=== PATIENT | male | born 1940 | race Caucasian/White ===

== ENCOUNTER → 2017-12-16 | Outpatient (CLI) | payer MEDICARE, BC ==
[~2017-12-16] MED LIST: AMLO10 PO; AMLO5 PO; ASPI325 PO; ASPI81CH PO; ASPI81EC PO; ATOR10 PO; ATOR20 PO; BISA10S PR; CYCL10 PO; DIGOX250 MCG PO; DRON400T PO; ELIQUIS5 MG PO; FENO145 PO; FENO160 PO; FENOFIBRATE48 MG PO; FINA5 PO; Flomax0.4 MG PO; HYDACE10B PO; HYDCHL12.5 PO; Hair, Skin & N1 EACH PO; K-Dur20 MEQ PO; LANS30EC PO; LOSA50 PO; Lasix20 MG PO; METO25 PO; METO25ER PO; METO50 PO; METOPROLOL TART75 MG PO; MULT50L PO; MULVITMIND PO; NAPR250 PO; NAPR500 PO; NAPROSYN; Naproxen250 MG PO; OMEP20ER PO; ONDA4ODT MM; TAMS.4ER PO; TRAM50 PO; Tambocor100 MG PO; [UNRECOGNIZED DRUG - OTHER] PO
== END | disposition home or self-care (01) ==
LOC: LAB SHORT 07:41 → PLD 07:41
DX: D22.4 Melanocytic nevi of scalp and neck (principal); L57.8 Other skin changes due to chronic exposure to nonionizing radiation
CPT/HCPCS: 88305

== ENCOUNTER 2018-03-25 | Day surgery (SDC) | END 2018-03-25 14:20 | disposition home or self-care (01) ==

== ENCOUNTER 2018-06-13 09:35 | Emergency (ER) | payer MEDICARE, BC ==
[~2018-06-13] VITALS: Ht 172.7 cm; Wt 111.1 kg
[~2018-06-13 09:35] MED LIST changes: -HYDCHL12.5 PO; -METOPROLOL TART75 MG PO
[2018-06-13 10:29] LABS: BASOPHILS ABSOLUTE AUTO 0.06 K/mm3 (0.00-0.23); BASOPHILS PERCENT AUTO 1 % (0-2); EOSINOPHILS PERCENT AUTO 1 % (0-6); Hematocrit 50.8 % (37.0-53.0); Hemoglobin 16.8 g/dL (13.5-17.5); IMMATURE GRAN ABSOLUTE AUTO 0.01 K/mm3 (0.00-0.10); IMMATURE GRAN PERCENT AUTO 0 % (0-1); LYMPHOCYTES ABSOLUTE AUTO 1.93 K/mm3 (0.84-5.20); LYMPHOCYTES PERCENT AUTO 27 % (21-46); MONOCYTES ABSOLUTE AUTO 0.72 K/mm3 (0.16-1.47); MONOCYTES PERCENT AUTO 10 % (4-13); Mean Corpuscular HGB 29.9 pg (26.0-34.0); Mean Corpuscular HGB Conc 33.1 g/dL (31.5-36.5); Mean Corpuscular Volume 90 fL (80-100); Mean Platelet Volume 10.6 fL (9.1-12.4); NEUTROPHILS ABSOLUTE AUTO 4.34 K/mm3 (1.96-9.15); NEUTROPHILS PERCENT AUTO 61 % (41-73); Platelet Count 239 K/mm3 (150-400); RDW Coefficient Variation 13.4 % (11.7-14.2); RDW Standard Deviation 44.9 fL (35.1-46.3); Red Blood Cell Count 5.62 M/mm3 (4.30-5.90); White Blood Cell Count 7.16 K/mm3 (4.00-11.30)
[2018-06-13 10:53] LABS: Free Thyroxine 0.93 ng/dL (0.70-1.60); Troponin I 0.016 ng/mL (0.000-0.040)
[2018-06-13 11:11] LABS: Alanine Aminotransfer (ALT/SGP 71 U/L (12-78); Albumin, Blood 3.6 g/dL (3.4-5.0); Alk Phos 90 U/L (50-136); Anion Gap 5 mmol/L (6-16); Aspartate Aminotrans (AST/SGOT 46 U/L (12-37); Bilirubin, Total 0.7 mg/dL (0.1-1.0); Blood Urea Nitrogen 21 mg/dL (8-24); Bun/Creatinine Ratio 21.5 (12.0-20.0); CO2, Blood 26 mmol/L (21-32); Calcium, Blood 8.3 mg/dL (8.5-10.1); Chloride, Blood 111 mmol/L (98-108); Creatinine, Blood 0.98 mg/dL (0.60-1.20); Globulin, Blood 3.6 g/dL (2.2-4.0); Glomerular Filtration Rate >60 (60-); Glucose, Blood 122 mg/dL (70-99); Sodium, Blood 142 mmol/L (136-145); Total Protein, Blood 7.2 g/dL (6.4-8.2)
[2018-06-14] MEDS ORDERED: METOPROLOL TART75 MG PO (16:03)
== END 2018-06-13 14:19 | disposition home or self-care (01) ==
LOC: ER 09:35
PROVIDERS: Emergency Medicine
DX: I48.92 Unspecified atrial flutter (principal); I48.91 Unspecified atrial fibrillation; Z91.030 Bee allergy status; Z79.899 Other long term (current) drug therapy; Z86.73 Personal history of transient ischemic attack (TIA), and cerebral infarction without residual deficits; Z87.891 Personal history of nicotine dependence
CPT/HCPCS: 36415; 80053; 84439; 84443; 84484; 85025; 92960; 93005; 93010; 96374; 96375; 99285-25; J2405; J7030

== ENCOUNTER 2018-06-14 13:08 | Emergency (ER) | payer MEDICARE, BC ==
[~2018-06-14] VITALS: Ht 172.7 cm; Wt 111.1 kg
[2018-06-14 15:21] LABS: BASOPHILS ABSOLUTE AUTO 0.03 K/mm3 (0.00-0.23); BASOPHILS PERCENT AUTO 0 % (0-2); EOSINOPHILS ABSOLUTE AUTO 0.11 K/mm3 (0.00-0.68); EOSINOPHILS PERCENT AUTO 1 % (0-6); Hematocrit 48.7 % (37.0-53.0); Hemoglobin 16.3 g/dL (13.5-17.5); IMMATURE GRAN ABSOLUTE AUTO 0.02 K/mm3 (0.00-0.10); IMMATURE GRAN PERCENT AUTO 0 % (0-1); LYMPHOCYTES ABSOLUTE AUTO 1.98 K/mm3 (0.84-5.20); LYMPHOCYTES PERCENT AUTO 24 % (21-46); MONOCYTES ABSOLUTE AUTO 0.69 K/mm3 (0.16-1.47); MONOCYTES PERCENT AUTO 8 % (4-13); Mean Corpuscular HGB 30.5 pg (26.0-34.0); Mean Corpuscular HGB Conc 33.5 g/dL (31.5-36.5); Mean Corpuscular Volume 91 fL (80-100); Mean Platelet Volume 10.8 fL (9.1-12.4); NEUTROPHILS PERCENT AUTO 66 % (41-73); Platelet Count 224 K/mm3 (150-400); RDW Coefficient Variation 13.7 % (11.7-14.2); Red Blood Cell Count 5.35 M/mm3 (4.30-5.90); White Blood Cell Count 8.33 K/mm3 (4.00-11.30)
[2018-06-14 15:38] LABS: Alanine Aminotransfer (ALT/SGP 69 U/L (12-78); Albumin, Blood 3.5 g/dL (3.4-5.0); Albumin/Globulin Ratio 1.1 (0.8-1.8); Alk Phos 82 U/L (50-136); Anion Gap 9 mmol/L (6-16); Aspartate Aminotrans (AST/SGOT 41 U/L (12-37); Bilirubin, Total 0.7 mg/dL (0.1-1.0); Blood Urea Nitrogen 30 mg/dL (8-24); Bun/Creatinine Ratio 23.8 (12.0-20.0); CO2, Blood 25 mmol/L (21-32); Calcium, Blood 8.3 mg/dL (8.5-10.1); Chloride, Blood 109 mmol/L (98-108); Creatinine, Blood 1.26 mg/dL (0.60-1.20); Globulin, Blood 3.1 g/dL (2.2-4.0); Glomerular Filtration Rate 59 (60-); Glucose, Blood 121 mg/dL (70-99); Magnesium, Blood 2.1 mg/dL (1.6-2.4); Potassium, Blood 4.2 mmol/L (3.5-5.5); Sodium, Blood 143 mmol/L (136-145); Total Protein, Blood 6.6 g/dL (6.4-8.2); Troponin I <0.015 ng/mL (0.000-0.040)
[2018-06-14] MEDS ORDERED: METOPROLOL TART75 MG PO (16:03)
== END 2018-06-14 17:11 | disposition home or self-care (01) ==
LOC: ER 13:08
PROVIDERS: Emergency Medicine
DX: I48.91 Unspecified atrial fibrillation (principal); Z87.891 Personal history of nicotine dependence; Z91.030 Bee allergy status; Z79.899 Other long term (current) drug therapy
CPT/HCPCS: 36415; 80053; 83735; 83880; 84443; 84484; 85025; 93005; 93010; 96374; 96375; 99285-25; J0153; J7030

== ENCOUNTER 2019-09-04 07:39 | Day surgery (SDC) | payer MEDICARE, BC ==
[~2019-09-04 07:39] MED LIST changes: +HYDCHL12.5 PO; +METOPROLOL TART75 MG PO
[2019-09-04] MEDS ORDERED: METO100ER (08:28)
== END 2019-09-04 23:01 | disposition home or self-care (01) ==
LOC: MHTC 07:39
DX: I48.3 Typical atrial flutter (principal); I49.5 Sick sinus syndrome; E78.5 Hyperlipidemia, unspecified; I10 Essential (primary) hypertension; G47.33 Obstructive sleep apnea (adult) (pediatric); Z91.018 Allergy to other foods; Z79.01 Long term (current) use of anticoagulants; Z79.899 Other long term (current) drug therapy; Z99.89 Dependence on other enabling machines and devices
CPT/HCPCS: 92960; 93005; 93010; 99152; 99153; J2250; J3010; J7040

== ENCOUNTER 2020-02-17 14:54 | Emergency (ER) | payer OTHER, MEDICARE, BC ==
[~2020-02-17] VITALS: Ht 177.8 cm; Wt 93.4 kg
[~2020-02-17 14:54] MED LIST changes: +METO100ER
[2020-02-17] MEDS ORDERED: ATOR10 PO (15:39)
[2020-02-17] MEDS ORDERED: ROSU10TA (15:40)
[2020-02-17] MEDS ORDERED: LANS30EC PO (15:41)
[2020-02-17] MEDS ORDERED: Flecainide Acet50 MG PO (15:41)
== END 2020-02-17 18:05 | disposition home or self-care (01) ==
LOC: ER 14:54
DX: S00.81XA Abrasion of other part of head, initial encounter (principal); S80.212A Abrasion, left knee, initial encounter; I48.91 Unspecified atrial fibrillation; I10 Essential (primary) hypertension; E78.5 Hyperlipidemia, unspecified; K21.9 Gastro-esophageal reflux disease without esophagitis; N40.0 Benign prostatic hyperplasia without lower urinary tract symptoms; G47.33 Obstructive sleep apnea (adult) (pediatric); Z91.030 Bee allergy status; Z79.899 Other long term (current) drug therapy; Z79.01 Long term (current) use of anticoagulants; Z86.73 Personal history of transient ischemic attack (TIA), and cerebral infarction without residual deficits; Z87.891 Personal history of nicotine dependence; W18.30XA Fall on same level, unspecified, initial encounter
CPT/HCPCS: 70450; 96374; 99284-25

== ENCOUNTER 2020-02-19 17:52 | Emergency (ER) | payer OTHER, MEDICARE, BC ==
[~2020-02-19] VITALS: Ht 177.8 cm; Wt 117.9 kg
[~2020-02-19 17:52] MED LIST changes: +Flecainide Acet50 MG PO; +ROSU10TA
[2020-02-19 18:33] LABS: BASOPHILS ABSOLUTE AUTO 0.04 K/mm3 (0.00-0.23); BASOPHILS PERCENT AUTO 0 % (0-2); EOSINOPHILS ABSOLUTE AUTO 0.06 K/mm3 (0.00-0.68); EOSINOPHILS PERCENT AUTO 1 % (0-6); Hematocrit 49.7 % (37.0-53.0); Hemoglobin 16.3 g/dL (13.5-17.5); IMMATURE GRAN ABSOLUTE AUTO 0.03 K/mm3 (0.00-0.10); IMMATURE GRAN PERCENT AUTO 0 % (0-1); LYMPHOCYTES ABSOLUTE AUTO 1.92 K/mm3 (0.84-5.20); LYMPHOCYTES PERCENT AUTO 20 % (21-46); MONOCYTES ABSOLUTE AUTO 0.86 K/mm3 (0.16-1.47); MONOCYTES PERCENT AUTO 9 % (4-13); Mean Corpuscular HGB 30.9 pg (26.0-34.0); Mean Corpuscular HGB Conc 32.8 g/dL (31.5-36.5); Mean Corpuscular Volume 94 fL (80-100); Mean Platelet Volume 10.9 fL (9.1-12.4); NEUTROPHILS ABSOLUTE AUTO 6.89 K/mm3 (1.96-9.15); NEUTROPHILS PERCENT AUTO 70 % (41-73); Platelet Count 292 K/mm3 (150-400); RDW Coefficient Variation 13.7 % (11.7-14.2); RDW Standard Deviation 47.9 fL (35.1-46.3); Red Blood Cell Count 5.28 M/mm3 (4.30-5.90)
[2020-02-19 18:59] LABS: Alanine Aminotransfer (ALT/SGP 72 U/L (12-78); Albumin, Blood 3.8 g/dL (3.4-5.0); Albumin/Globulin Ratio 1.1 (0.8-1.8); Alk Phos 81 U/L (50-136); Anion Gap 6 mmol/L (6-16); Aspartate Aminotrans (AST/SGOT 39 U/L (12-37); Blood Urea Nitrogen 22 mg/dL (8-24); Bun/Creatinine Ratio 18.3 (12.0-20.0); CO2, Blood 26 mmol/L (21-32); Calcium, Blood 8.9 mg/dL (8.5-10.1); Chloride, Blood 109 mmol/L (98-108); Globulin, Blood 3.6 g/dL (2.2-4.0); Glomerular Filtration Rate >60 (60-); Glucose, Blood 106 mg/dL (70-99); Potassium, Blood 3.8 mmol/L (3.5-5.5); Sodium, Blood 141 mmol/L (136-145); Total Protein, Blood 7.4 g/dL (6.4-8.2); Troponin I <0.015 ng/mL (0.000-0.040)
== END 2020-02-19 21:03 | disposition home or self-care (01) ==
LOC: ER 17:52
PROVIDERS: Nurse Practitioner
DX: I48.92 Unspecified atrial flutter (principal); I48.91 Unspecified atrial fibrillation; K21.9 Gastro-esophageal reflux disease without esophagitis; G47.33 Obstructive sleep apnea (adult) (pediatric); Z86.73 Personal history of transient ischemic attack (TIA), and cerebral infarction without residual deficits; Z87.891 Personal history of nicotine dependence
CPT/HCPCS: 36415; 71046; 80053; 84484; 85025; 92960; 93005; 93010; 99285-25; J2704; J7030

== ENCOUNTER 2020-07-10 19:45 | Emergency (ER) | payer OTHER, MEDICARE, BC ==
[~2020-07-10] VITALS: Ht 177.8 cm; Wt 123.4 kg
[~2020-07-10 19:45] MED LIST changes: -ELIQUIS5 MG PO; -FINA5 PO; -Flecainide Acet50 MG PO; -Flomax0.4 MG PO; -METO100ER
[2020-07-10 20:22] LABS: BASOPHILS ABSOLUTE AUTO 0.04 K/mm3 (0.00-0.23); BASOPHILS PERCENT AUTO 1 % (0-2); EOSINOPHILS ABSOLUTE AUTO 0.07 K/mm3 (0.00-0.68); EOSINOPHILS PERCENT AUTO 1 % (0-6); Hematocrit 46.8 % (37.0-53.0); Hemoglobin 15.5 g/dL (13.5-17.5); IMMATURE GRAN ABSOLUTE AUTO 0.02 K/mm3 (0.00-0.10); IMMATURE GRAN PERCENT AUTO 0 % (0-1); LYMPHOCYTES ABSOLUTE AUTO 2.05 K/mm3 (0.84-5.20); LYMPHOCYTES PERCENT AUTO 26 % (21-46); MONOCYTES ABSOLUTE AUTO 0.81 K/mm3 (0.16-1.47); MONOCYTES PERCENT AUTO 10 % (4-13); Mean Corpuscular HGB 30.5 pg (26.0-34.0); Mean Corpuscular HGB Conc 33.1 g/dL (31.5-36.5); Mean Corpuscular Volume 92 fL (80-100); Mean Platelet Volume 11.9 fL (9.1-12.4); NEUTROPHILS ABSOLUTE AUTO 4.96 K/mm3 (1.96-9.15); NEUTROPHILS PERCENT AUTO 62 % (41-73); Platelet Count 212 K/mm3 (150-400); RDW Coefficient Variation 13.3 % (11.7-14.2); RDW Standard Deviation 45.6 fL (35.1-46.3); Red Blood Cell Count 5.09 M/mm3 (4.30-5.90); White Blood Cell Count 7.95 K/mm3 (4.00-11.30)
[2020-07-10 20:38] LABS: International Normalized Ratio 0.99; Prothrombin Time Results 10.6 Sec (9.7-11.5)
[2020-07-10] MEDS ORDERED: AMLO5 PO (21:18)
[2020-07-10] MEDS ORDERED: Flomax0.4 MG PO (21:18)
[2020-07-10] MEDS ORDERED: FINA5 PO (21:18)
[2020-07-10] MEDS ORDERED: LOSARTAN POTAS100 M1 PO (21:18)
[2020-07-10] MEDS ORDERED: ELIQUIS5 MG PO (21:19)
[2020-07-10] MEDS ORDERED: Flecainide Acet50 MG PO (21:19)
[2020-07-10] MEDS ORDERED: METO100ER PO (21:19)
[2020-07-10] MEDS ORDERED: LANS30EC PO (21:20)
[2020-07-10 21:29] LABS: Alanine Aminotransfer (ALT/SGP 96 U/L (12-78); Albumin, Blood 3.5 g/dL (3.4-5.0); Alk Phos 91 U/L (50-136); Anion Gap 7 mmol/L (6-16); Aspartate Aminotrans (AST/SGOT 63 U/L (12-37); Bilirubin, Total 0.5 mg/dL (0.1-1.0); Blood Urea Nitrogen 18 mg/dL (8-24); Bun/Creatinine Ratio 19.6 (12.0-20.0); CO2, Blood 27 mmol/L (21-32); Calcium, Blood 8.6 mg/dL (8.5-10.1); Chloride, Blood 107 mmol/L (98-108); Creatinine, Blood 0.92 mg/dL (0.60-1.20); Ethanol (Alcohol), Blood, Med <3 mg/dL; Globulin, Blood 3.4 g/dL (2.2-4.0); Glomerular Filtration Rate >60 (60-); Glucose, Blood 115 mg/dL (70-99); Potassium, Blood 3.7 mmol/L (3.5-5.5); Sodium, Blood 141 mmol/L (136-145); Total Protein, Blood 6.9 g/dL (6.4-8.2)
[2020-07-10] MEDS ORDERED: Keflex500 MG PO (22:10)
== END 2020-07-10 23:16 | disposition home or self-care (01) ==
LOC: ER 19:45
PROVIDERS: Emergency Medicine
DX: S01.81XA Laceration without foreign body of other part of head, initial encounter (principal); I10 Essential (primary) hypertension; K21.9 Gastro-esophageal reflux disease without esophagitis; I48.91 Unspecified atrial fibrillation; E78.5 Hyperlipidemia, unspecified; N40.0 Benign prostatic hyperplasia without lower urinary tract symptoms; Z91.030 Bee allergy status; Z79.899 Other long term (current) drug therapy; Z79.01 Long term (current) use of anticoagulants; Z86.73 Personal history of transient ischemic attack (TIA), and cerebral infarction without residual deficits; Z87.891 Personal history of nicotine dependence; W01.0XXA Fall on same level from slipping, tripping and stumbling without subsequent striking against object, initial encounter; Y93.01 Activity, walking, marching and hiking
CPT/HCPCS: 12051; 70450; 71045; 72125; 73100; 80053; 85025; 85610; 85730; 86850; 86900; 86901; 99284-25; A9270-GY; G0480

== ENCOUNTER 2020-08-17 17:12 | Emergency (ER) | payer OTHER, MEDICARE, BC ==
[~2020-08-17] VITALS: Ht 177.8 cm; Wt 123.0 kg
[~2020-08-17 17:12] MED LIST changes: +ELIQUIS5 MG PO; +FINA5 PO; +Flecainide Acet50 MG PO; +Flomax0.4 MG PO; +Keflex500 MG PO; +LOSARTAN POTAS100 M1 PO; +METO100ER PO
== END 2020-08-17 21:35 | disposition home or self-care (01) ==
LOC: ER 17:12
DX: S06.0X0A Concussion without loss of consciousness, initial encounter (principal); I48.91 Unspecified atrial fibrillation; K21.9 Gastro-esophageal reflux disease without esophagitis; E78.5 Hyperlipidemia, unspecified; H53.8 Other visual disturbances; Z86.73 Personal history of transient ischemic attack (TIA), and cerebral infarction without residual deficits; Z87.891 Personal history of nicotine dependence; W19.XXXA Unspecified fall, initial encounter
CPT/HCPCS: 70450; 99284-25

== ENCOUNTER 2020-10-06 10:57 | Day surgery (SDC) | payer OTHER, MEDICARE, BC ==
[~2020-10-06] VITALS: Ht 177.8 cm; Wt 120.4 kg
[~2020-10-06 10:57] MED LIST changes: +Calcium Ascorb500 MG PO; +FURO80 PO; +METO50ER PO; +ROSU10TA PO; +VITAMIN D32000 UNI1 PO
== END 2020-10-06 14:12 | disposition home or self-care (01) ==
LOC: ORSCSDS 10:57
DX: Z12.11 Encounter for screening for malignant neoplasm of colon (principal); Z86.010 Personal history of colon polyps; D12.2 Benign neoplasm of ascending colon; D12.0 Benign neoplasm of cecum; K63.5 Polyp of colon; K64.8 Other hemorrhoids; I10 Essential (primary) hypertension; E78.5 Hyperlipidemia, unspecified; Z79.899 Other long term (current) drug therapy; I48.0 Paroxysmal atrial fibrillation; Z79.01 Long term (current) use of anticoagulants; F17.210 Nicotine dependence, cigarettes, uncomplicated; E78.00 Pure hypercholesterolemia, unspecified; G47.33 Obstructive sleep apnea (adult) (pediatric); Z86.73 Personal history of transient ischemic attack (TIA), and cerebral infarction without residual deficits
CPT/HCPCS: 88305; J2704

== ENCOUNTER 2020-11-15 16:40 | Inpatient (IN) | payer OTHER, MEDICARE, BC ==
[~2020-11-15] VITALS: Ht 177.8 cm; Wt 126.3 kg
[2020-11-15 18:05] LABS: BASOPHILS ABSOLUTE AUTO 0.07 K/mm3 (0.00-0.23); BASOPHILS PERCENT AUTO 1 % (0-2); EOSINOPHILS ABSOLUTE AUTO 0.07 K/mm3 (0.00-0.68); EOSINOPHILS PERCENT AUTO 1 % (0-6); Hematocrit 51.8 % (37.0-53.0); Hemoglobin 16.7 g/dL (13.5-17.5); IMMATURE GRAN ABSOLUTE AUTO 0.03 K/mm3 (0.00-0.10); IMMATURE GRAN PERCENT AUTO 0 % (0-1); LYMPHOCYTES ABSOLUTE AUTO 0.95 K/mm3 (0.84-5.20); LYMPHOCYTES PERCENT AUTO 10 % (21-46); MONOCYTES ABSOLUTE AUTO 1.09 K/mm3 (0.16-1.47); MONOCYTES PERCENT AUTO 11 % (4-13); Mean Corpuscular HGB Conc 32.2 g/dL (31.5-36.5); Mean Corpuscular Volume 93 fL (80-100); NEUTROPHILS ABSOLUTE AUTO 7.34 K/mm3 (1.96-9.15); NEUTROPHILS PERCENT AUTO 77 % (41-73); Platelet Count 233 K/mm3 (150-400); RDW Coefficient Variation 13.8 % (11.7-14.2); RDW Standard Deviation 47.4 fL (35.1-46.3); Red Blood Cell Count 5.57 M/mm3 (4.30-5.90); White Blood Cell Count 9.55 K/mm3 (4.00-11.30)
[2020-11-15 18:25] LABS: Alanine Aminotransfer (ALT/SGP 156 U/L (12-78); Albumin, Blood 3.7 g/dL (3.4-5.0); Albumin/Globulin Ratio 0.8 (0.8-1.8); Alk Phos 97 U/L (50-136); Anion Gap 6 mmol/L (6-16); Aspartate Aminotrans (AST/SGOT 134 U/L (12-37); Bilirubin, Total 0.8 mg/dL (0.1-1.0); Blood Urea Nitrogen 23 mg/dL (8-24); Bun/Creatinine Ratio 21.3 (12.0-20.0); CO2, Blood 28 mmol/L (21-32); Calcium, Blood 9.1 mg/dL (8.5-10.1); Chloride, Blood 105 mmol/L (98-108); Creatinine, Blood 1.08 mg/dL (0.60-1.20); Globulin, Blood 4.5 g/dL (2.2-4.0); Glomerular Filtration Rate >60 (60-); Glucose, Blood 98 mg/dL (70-99); Sodium, Blood 139 mmol/L (136-145); Total Protein, Blood 8.2 g/dL (6.4-8.2); Troponin I <0.015 ng/mL (0.000-0.040)
[2020-11-15] MEDS ORDERED: METO100ER PO (21:46)
[2020-11-15 22:48] LABS: Source, Urine Clean Catch
[2020-11-15 22:50] LABS: Bilirubin, Urine Neg (Neg); Blood, Urine 1+ (Neg); Glucose Qualitative, Urine Neg (Neg); Ketones, Urine Neg (Neg); Leukocyte Esterase, Urine 2+ (Neg); Nitrite, Urine Neg (Neg); Protein, Urine 2+ (Neg); Urobilinogen, Urine NORM (Normal)
[2020-11-15 22:55] LABS: Appearance, Urine Clear (Clear); Color, Urine Yellow (P-Yellow)
[2020-11-15 22:56] LABS: Red Blood Cells, Urine 0-2 /hpf (0-2)
[2020-11-15 22:57] LABS: Bacteria Few /hpf; Calcium Oxalate Crystals Few /hpf; Squamous Epithelial Cells Not Seen /hpf (Few)
--- NOTE | 2020-11-16 02:35 | NUR ---
ADMIT NOTE HANDOFF RECEIVED FROM ER NURSE JADON. PT BROUGHT TO FLOOR VIA GURNEY. PERSONAL POSSESSIONS WITH PT. CALL BUTTON WITHIN REACH. BED IN LOWEST POSITION. BED ALARM ON.
--- NOTE | 2020-11-16 02:41 | NUR ---
ISOLATION DC'D CALLED ER NURSEJADON. VERIFIED ISOLATION WAS DC'D. NO CONTACT OR ISOLATION ORDERS FOR THIS PT
--- NOTE | 2020-11-16 04:00 | NUR ---
SHIFT SUMMARY ADMITTED FROM ER THIS SHIFT. FULL CODE. PT IS A MAX 2 HEAVY ASSIST FOR CHANGES. HE APPEARS CONFUSED. HE ANSWERS SOME QUESTIONS APPROPRIATELY, AND OTHER QUESTIONS INAPPROPRIATELY. HE DOES TURN HIMSELF IN BED, BUT DOES NOT FOLLOW INSTRUCTIONS. HE IS INCONTINENT. TELEMETRY: TACH @ 113 W/PVC'S. HE WAS AFIB IN ER. HX OF HEMORRHAGIC STROKE. CT OF HEAD NEGATIVE. PRN METOPROLOL AND APRESOLINE AVAILABLE IN EMAR WITH PARAMETERS.
[2020-11-16 10:36] LABS: Base Excess Venous 3.5 mmol/L; Bicarbonate Venous 27.5 mmol/L (24.0-30.0); PCO2 Venous 37.2 mmHg (38-42); PO2 Venous 67.2 mmHg (38-42); pH Blood Venous 7.47 (7.34-7.37)
--- NOTE | 2020-11-16 18:38 | NUR ---
PT PLEASANT TODAY. SLOWLY IMPROVED MENTATION NOTED TODAY. IS A/O X3 BUT SLOW TO RESPOND, PERHAPS 5 SECONDS. THROUGHOO DAY HAS IMPROVED. ANDERSON IN TODAY. STATES DOES USE CPAP NITE. WE HAD HER BRING IN HIS HOME MACHINE. BOB AT RT NOTIFIED TO COME ADJUST. NO C/O PAIN. DOES FEED SELF, BUT DOES SPILL SOME. SOME TREMORS NOTED. PT STATES IS NORMAL. DENIES ETOH USE. BED IN LOW POSITION, CALL LITE IN REACH, BED ALARN ON FOR SAFETY
--- NOTE | 2020-11-17 03:28 | NUR ---
NAUSEA/VOMITING EPISODE PT HAD SUDDEN EPISODE OF NAUSEA AND PROJECTILE VOMITING DURING THE NIGHT. WHEN THIS RN WENT IN TO CHECK ON THE PT, HE WAS COVERED IN EMESIS. PER PT, IT WAS "SUDDEN" AND "IT WOKE ME UP". PT WAS GIVEN A SHOWER AND LINEN CHANGE. PRN ZOFRAN ORDERED AND ADMINISTERED PER DR GARBER. PT STATES HE HAS HAD SIMILAR EPISODES BEFORE BUT "IT WAS YEARS AGO" AND HE COULDN'T RECALL WHAT CAUSED THEM IN THE PAST. DENIED ABD PAIN. WILL CONTINUE TO MONITOR.
--- NOTE | 2020-11-17 06:37 | NUR ---
SHIFT SUMMARY PT IS A 80 Y/O MALE, ADMITTED FOR AFIB WITH RVR. HE IS A&O X 3, THOUGH SLOW TO RESPOND AND HAS DIFFICULTY FOLLOWING COMMANDS. PT HAD EPISODE OF NAUSEA AND VOMITING DURING THE NIGHT (SEE PREVIOUS NOTE) THAT WAS WELL TREATED WITH ZOFRAN. NO C/O PAIN OR SOB. TELE SHOWED AFLUTTER IN THE 110S. VITAL SIGNS OTHERWISE STABLE. NO OTHER ACUTE CHANGES IN PT CONDITION NOTED DURING THE NIGHT. WILL CONTINUE TO MONITOR AND TREAT PER EMAR UNTIL HAND OFF TO DAY SHIFT RN.
[2020-11-17 12:03] LABS: Hemoglobin 16.3 g/dL (13.5-17.5)
[2020-11-17 12:31] LABS: Albumin, Blood 3.2 g/dL (3.4-5.0); Albumin/Globulin Ratio 0.8 (0.8-1.8); Bilirubin, Total 0.6 mg/dL (0.1-1.0); Bun/Creatinine Ratio 23.7 (12.0-20.0); Calcium, Blood 8.8 mg/dL (8.5-10.1); Creatinine, Blood 1.31 mg/dL (0.60-1.20); Globulin, Blood 4.1 g/dL (2.2-4.0); Potassium, Blood 3.6 mmol/L (3.5-5.5); Thyroid Stimulating Hormone 1.01 uIU/mL (0.360-4.800); Total Protein, Blood 7.3 g/dL (6.4-8.2)
--- NOTE | 2020-11-17 18:32 | NUR ---
SHIFT SUMMARY PT A/O X3; PLEASANT AND COOPERATIVE WITH CARE. CAN BE SLOW TO RESPOND TO QUESTIONS. WORKED WITH O.T./P.T. THIS SHIFT AND UP IN A CHAIR WITH A 2 PERSON ASSIST. PT HYPOTENSIVE THIS AFTERNOON, PHYSICIAN NOTIFIED AND ORDERED TO CONTINUE TO MONITOR BP. DINNER TRAY HELD DUE TO PATIENT GETTING AN ULTRASOUND AND ECHO THIS PM. WILL REPORT TO MANUFACTURING ENGINEERING DIRECTOR RN.
--- NOTE | 2020-11-18 05:11 | NUR ---
SHIFT SUMMARY TOOK OVER CARE FROM PRIMARY RN AT 2300. PT DENIED ANY NEEDS AT THAT TIME. PT IS A&O X 3, SLOW TO RESPOND AT TIMES. NO C/O PAIN, NAUSEA OR SOB. VITAL SIGNS STABLE. PT REFUSED AM MEDS. NO ACUTE CHANGES IN PT CONDITION NOTED. WILL CONTINUE TO MONITOR AND TREAT PER EMAR UNTIL HAND OFF TO DAY SHIFT RN.
--- NOTE | 2020-11-18 11:14 | NUR ---
Echocardiogram completed.
--- NOTE | 2020-11-18 19:20 | NUR ---
ASSUMED CARE RECEIVED REPORT FROM JAVIER HIGGINS. PT RESTING IN BED, NO S/S ACUTE DISTRESS NOTED. PENDING TRANSPORT FOR ABD XRAY. DENIES NEEDS. CALL LIGHT, POSSESSIONS IN REACH, BED IN LOW POSITION WITH ALARMS ON. CONTINUE TO MONITOR.
--- NOTE | 2020-11-18 19:43 | NUR ---
SHIFT SUMMARY PT AXO, COOPERATIVE WITH CARE THOUGH EMOTIONALLY LABILE AND IRRITABLE AT TIMES. PT STATED THAT HE "DIDN'T SLEEP WELL" LAST NIGHT. PT REQUESTED CARDIOVERSION. CARDIOLOGY CONSULT CALLED, SEE NOTE. PT RUNNING A-FLUTTER AT 96 THIS EVENING. PHYSICAL THERAPY AND OCCUPATIONAL THERAPY WORKED WITH PATIENT, SEE NOTE. IV PATENT AND SALINE LOCKED. BED IN LOW POSITION, CALL LIGHT WITHIN REACH. NO ACUTE CHANGES THIS SHIFT.
--- NOTE | 2020-11-19 06:33 | NUR ---
SHIFT SUMMARY PT ASLEEP, NO ACUTE CHANGES IN CONDITION NOTED T/O NIGHT. VS REVIEWED, WNL. HR TRENDING IN 90'S, RUNNING AFLUTTER PER PCU PC INSTALLATION ENGINEER. NO C/O NAUSEA. WORE CPAP T/O NIGHT, DENIES SOB, DYSPNEA. NO ACUTE NEEDS ASSESSED AT THIS TIME. CALL LIGHT, POSSESSIONS IN REACH, BED IN LOW POSITION WITH ALARMS ON. CONTINUE TO MONITOR, REPORT OFF TO DAY RN.
--- NOTE | 2020-11-19 13:30 | NUR ---
SPOKE WITH PT'S SON DANIEL. PER DANIEL PT WILL NOT WANT TO GO TO [facility] FOR REHAB, BUT PREFERS [facility], ALSO FAMILY WISHES PT TO GO TO AN ASSISTED LIVING AFTER REHAB. PT'S IS NEWLY IN MEMORY [facility]ARE AND FAMILY WISHES PT AND TO BE PLACED IN SAME FACILITY IF AT ALL POSSIBLE. MONICA JOSHUA NOTIFIED OF THE ABOVE AND DANIEL'S PHONE NUMBER PROVIDED.
--- NOTE | 2020-11-19 18:12 | NUR ---
NO ACUTE CHANGES NOTED THIS SHIFT, WILL CONTINUE TO MONITOR AND REPORT TO ONCOMING RN
--- NOTE | 2020-11-19 19:05 | NUR ---
ASSUMED CARE RECEIVED REPORT FROM JAVIER ALEXIS. PT RESTING IN BED COMFORTABLY, NO S/S ACUTE DISTRESS NOTED. DENIES NEEDS. CALL LIGHT, POSSESSIONSIN REACH, BED IN LOW POSITION WITH ALARMS ON. CONTINUE TO MONITOR.
--- NOTE | 2020-11-20 05:30 | NUR ---
SHIFT SUMMARY PT RESTING, IN NO ACUTE DISTRESS. VS REVIEWED, WNL. PT WORE CPAP T/O NIGHT. APPEARS TO HAVE INCREASING DIFFICULTY C TRANSFERS, REQUIRES 2 PERSON MAX ASSIST. VS REVIEWED,WNL. PT DENIES SOB, DYSPNEA, C/O "WHEEZING"; REPORTS HE HASN'T HAD THIS ISSUE BEFORE. DR. GARBER INFORMED, NEW ORDERS RECEIVED. NO CARDIAC EVENTS T/O NIGHT, PT CONTINUES TO RUN A-FLUTTER IN THE 90'S, NO C/O CHEST PAIN. ASSISTED PT TO GET CLEANED UP, APPEARS MORE COMFORTABLE. DENIES FURTHER NEEDS AT THIS TIME. CALL LIGHT AND POSSESSIONS IN REACH, BED IN LOW POSITION WITH ALARM ON. CONTINUE TO MONITOR UNTIL REPORT GIVEN TO DAY RN.
--- NOTE | 2020-11-20 17:25 | NUR ---
SHIFT SUMMARY PT SLEEPING AT START OF SHIFT; ON CPAP DURING SHIFT REPORT. WAKING ONLY BRIEFLY. PT LATER WOKE, REMOVING CPAP HOSE TO USE URINAL. PER SHIFT REPORT, PT HAD NOT BEEN THAT CONFUSED AND WAS DOING BETTER YESTERDAY. PT ASSISTED UP TO CHAIR FOR BREAKFAST. PT VERY WEAK AND DECONDITIONED; 2P MAX ASSIST TO GET OOB TO CHAIR TODAY. PT ALSO TAKES A LONG TIME TO ANS QUESTIONS OR MAKE DECISIONS. PT REPORTED NOT SLEEPING WELL LAST NIGHT, EVEN THOUGH ON CPAP. PT UP TO CHAIR FOR MOST OF DAY, NOT WANTING TO GO BACK TO BED UNTIL LATE THIS AFTERNOON. PT DID TAKE A SHORT NAP IN THE CHAIR, BEFORE WAKING AND DECIDING TO GO BACK TO BED. PT SEEMED TO BE A LITTLE MORE ORIENTED THIS AFTERNOON THAN HE WAS THIS AM. PT ALSO MOVED JUST A LITTLE BETTER GETTING UP OUT OF CHAIR AND FOLLOWING DIRECTIONS TO GET TO THE BED. PT DID NOT APPEAR WELL THIS AM, BUT DENIED PAIN AND NAUSEA. THIS EVENING WHEN GETTING INTO BED, PT MOANED IN PAIN AND DID AGREE TO WANTING PAIN MEDICATION. PT'S DAUGHTER LATER CAME IN AND DID STATE THAT PT DOES HAVE PAIN, BUT DOES NOT AGREE TO PAIN MEDICATION VERY OFTEN. PT GIVEN WARM BLANKETS WITH PAIN MEDICATION AND HAS BEEN RESTING WELL. DR VLAE IN TO SEE PT THIS AM. PT REQUESTED ADDITIONAL BOWEL CARE; ORDERED PER REQUEST. PT GIVEN LACTULOSE PER EMAR, WITH EFFECT. BED ALARM ON FOR SAFETY. CALL LT IN REACH.
--- NOTE | 2020-11-20 19:35 | NUR ---
ASSUMED CARE RECEIVED BEDSIDE REPORT FROM JAVIER MARCANO; PT A&O X 2-3; VSS; CPAP IN PLACE; RESTING IN BED W/ NO DISTRESS NOTED; CALL LIGHT IN REACH; BED IN LOWEST POSITION; BED ALARM ON FOR SAFETY.
[2020-11-21 05:29] LABS: Base Excess Venous 5.9 mmol/L; Bicarbonate Venous 29.6 mmol/L (24.0-30.0); PCO2 Venous 36.6 mmHg (38-42); PO2 Venous 116 mmHg (38-42); pH Blood Venous 7.51 (7.34-7.37)
[2020-11-21 05:46] LABS: Hematocrit 49.2 % (37.0-53.0); Hemoglobin 15.7 g/dL (13.5-17.5); Mean Corpuscular HGB 29.6 pg (26.0-34.0); Mean Corpuscular HGB Conc 31.9 g/dL (31.5-36.5); Mean Corpuscular Volume 93 fL (80-100); Mean Platelet Volume 11.3 fL (9.1-12.4); Platelet Count 200 K/mm3 (150-400); RDW Coefficient Variation 13.4 % (11.7-14.2); RDW Standard Deviation 46.2 fL (35.1-46.3); White Blood Cell Count 7.32 K/mm3 (4.00-11.30)
[2020-11-21 06:04] LABS: Anion Gap 7 mmol/L (6-16); Blood Urea Nitrogen 21 mg/dL (8-24); Bun/Creatinine Ratio 20.8 (12.0-20.0); CO2, Blood 27 mmol/L (21-32); Calcium, Blood 8.4 mg/dL (8.5-10.1); Chloride, Blood 106 mmol/L (98-108); Creatinine, Blood 1.01 mg/dL (0.60-1.20); Glomerular Filtration Rate >60 (60-); Glucose, Blood 107 mg/dL (70-99); Potassium, Blood 3.7 mmol/L (3.5-5.5); Sodium, Blood 140 mmol/L (136-145)
--- NOTE | 2020-11-21 06:10 | NUR ---
SHIFT SUMMARY PT A&O X2-3; PT MORE ALERT THIS AM, TEASING W/ STAFF; BP INCREASING T/O SHIFT; HOWEVER BELOW LIMITS FOR MEDICATION; O2 SATS >93 W/ CPAP IN PLACE T/O SHIFT; Q2 TURNS PROVIDED W/ BRIEF CHANGE; REORIENTED TO ROOM & CALL LIGHT THIS AM; PT CURRENTLY SLEEPING W/ NO DISTRESS NOTED; CALL LIGHT IN REACH; BED IN LOWEST POSITION; WILL CONTINUE TO MONITOR CLOSELY UNTIL HAND OFF TO DAY SHIFT RN.
--- NOTE | 2020-11-21 17:30 | NUR ---
SHIFT SUMMARY PT WORKED WITH OT/PT THIS SHIFT AND AMBULATED IN ROOM. PT SLEEPING OFF AND ON THROUGH OUT THE SHIFT. PT C/O [facility]'S CPAP MASK. THIS RN CALLED [facility] AND THEY WILL BE BRINGING HIM A MASK AND TUBING TOMORROW. PT ORIENTED AT TIMES AND CONFUSED AT TIMES. NO ACUTE CHANGES. WAITING FOR PLACEMENT. CALL LIGHT IN REACH. CHAIR ALARM ON FOR SAFETY.
--- NOTE | 2020-11-21 17:59 | NUR ---
Spiritual care note: Mr. Main spoke with great love about his of 58 years. He explained how difficult it has been to see her decline into dementia. He had trouble finding words at times and appeared confused. He has 2 children who are involved and are trying to place both of their parents in some form of assisted living. He is not happy about this and claims "they are trying to take all our money." Mr. Main appears quite weak and had trouble staying awake although he was sitting up in chair. He expressed sadness and anger with the aging process. I provided prayer and emotional affirmation to good effect. He will benefit from continued spiritual support.
--- NOTE | 2020-11-22 04:07 | NUR ---
SHIFT SUMMARY ADMITTED FOR RAPID ATRIAL FIBRILLATION. FULL CODE. PLAN IS FOR PLACEMENT IN [facility] VS. 24 HR [facility]. PT IS CONFUSED, UNAWARE OF HIS LIMITATIONS. TELEMETRY: TACHY @ 107 BPM. HE USES HIS HOME CPAP AT NIGHT. HX OF FALLS, AFIB, HEMORRHAGIC CVA. HE WAS INCONTINENT THIS SHIFT, ATTENDS IN PLACE. [facility] PATIENT.
[2020-11-22 05:20] LABS: BASOPHILS ABSOLUTE AUTO 0.03 K/mm3 (0.00-0.23); BASOPHILS PERCENT AUTO 0 % (0-2); EOSINOPHILS ABSOLUTE AUTO 0.11 K/mm3 (0.00-0.68); EOSINOPHILS PERCENT AUTO 1 % (0-6); Hematocrit 48.5 % (37.0-53.0); Hemoglobin 15.7 g/dL (13.5-17.5); IMMATURE GRAN ABSOLUTE AUTO 0.03 K/mm3 (0.00-0.10); IMMATURE GRAN PERCENT AUTO 0 % (0-1); LYMPHOCYTES ABSOLUTE AUTO 2.28 K/mm3 (0.84-5.20); LYMPHOCYTES PERCENT AUTO 28 % (21-46); MONOCYTES ABSOLUTE AUTO 0.92 K/mm3 (0.16-1.47); MONOCYTES PERCENT AUTO 11 % (4-13); Mean Corpuscular HGB 30.1 pg (26.0-34.0); Mean Corpuscular HGB Conc 32.4 g/dL (31.5-36.5); Mean Corpuscular Volume 93 fL (80-100); Mean Platelet Volume 11.3 fL (9.1-12.4); NEUTROPHILS ABSOLUTE AUTO 4.75 K/mm3 (1.96-9.15); NEUTROPHILS PERCENT AUTO 58 % (41-73); Platelet Count 202 K/mm3 (150-400); RDW Coefficient Variation 13.3 % (11.7-14.2); RDW Standard Deviation 45.6 fL (35.1-46.3); Red Blood Cell Count 5.21 M/mm3 (4.30-5.90); White Blood Cell Count 8.12 K/mm3 (4.00-11.30)
[2020-11-22 05:48] LABS: Alanine Aminotransfer (ALT/SGP 112 U/L (12-78); Albumin/Globulin Ratio 0.8 (0.8-1.8); Alk Phos 73 U/L (50-136); Anion Gap 6 mmol/L (6-16); Aspartate Aminotrans (AST/SGOT 66 U/L (12-37); Bilirubin, Total 0.8 mg/dL (0.1-1.0); Blood Urea Nitrogen 23 mg/dL (8-24); Bun/Creatinine Ratio 20.7 (12.0-20.0); CO2, Blood 29 mmol/L (21-32); Calcium, Blood 8.6 mg/dL (8.5-10.1); Chloride, Blood 104 mmol/L (98-108); Creatinine, Blood 1.11 mg/dL (0.60-1.20); Globulin, Blood 3.8 g/dL (2.2-4.0); Glomerular Filtration Rate >60 (60-); Glucose, Blood 102 mg/dL (70-99); Potassium, Blood 3.9 mmol/L (3.5-5.5); Sodium, Blood 139 mmol/L (136-145); Total Protein, Blood 6.8 g/dL (6.4-8.2)
[2020-11-22] MEDS ORDERED: XARELTO20 MG PO (14:01)
[2020-11-22] MEDS ORDERED: DOCUZEN 8.6-501 EACH PO (14:04)
[2020-11-22] MEDS ORDERED: MIRALAX17 GM PO (14:04)
[2020-11-22] MEDS ORDERED: METO25 PO (14:06)
[2020-11-22 15:16] LABS: Influenza A, PCR Negative (NEGATIVE); Influenza B, PCR Negative (NEGATIVE); Resp Syncytial Virus, PCR Negative (NEGATIVE); SARS-Cov-2 (COVID-19) PCR, MMC Positive (NEGATIVE)
--- NOTE | 2020-11-22 17:19 | NUR ---
SHIFT SUMMARY PT HAD A POSITIVE COVID TEST THIS AFTERNOON WHEN THIS RN SWABBED HIM. PT WAS TO LEAVE TO [facility] TODAY BUT IS NOW WAITING UNTIL A BED IS AVAILABLE IN THE COVID [facility]AF[facility]. PT HAS BEEN CONFUSED THROUGH OUT THE DAY BUT COOPERATIVE. NO COMPLAINTS OF PAIN. APPETITE HAS BEEN BETTER TODAY. PT DOES C/O FOOD TASTING BAD HERE. NO ACUTE CHANGES THIS SHIFT. CALL LIGHT IN REACH. WILL CONTINUE TO MONITOR AND REPORT TO ONCOMING RN.
--- NOTE | 2020-11-22 20:31 | NUR ---
DOCUMENTATION UNDO NURSE ROUNDING ERROR AT 2025,CHARTED ON WRONG PT
--- NOTE | 2020-11-23 06:41 | NUR ---
SHIFT SUMMARY PT IS A 80 Y/O MALE, ADMITTED FOR RAPID AFIB AND CURRENTLY IN ENHANCED ISOLATION FOR COVID-19. PT IS A&O X 2-3, 2PA OUT OF BED. PT CAN BE MILDLY CONFUSED AT TIMES. NO C/O ACUTE PAIN, NAUSEA OR SOB. TELE SHOWED AFIB IN THE 90-1OOS. VITAL SIGNS STABLE. NO ACUTE CHANGES IN PT CONDITION NOTED. WILL CONTINUE TO MONITOR AND TREAT PER EMAR UNTIL HAND OFF TO DAY SHIFT RN.
--- NOTE | 2020-11-23 17:05 | NUR ---
SHIFT SUMMARY PT IS AO TO SELF AND SLIGHTLY CONFUSED. PT IS FORGETFUL OF LIMITATIONS. PT DENIES N/V, SOB, AND PAIN. PT PRESENTED WITH NEW, PRODUCTIVE COUGH TODAY. PT WORKED WITH PT WHO STATES PT'S AMBULATION HAS IMPROVED. PLAN IS TO MONITOR PT'S O2 SATURATION AND EVENTUALLY DC TO SNF. THIS RN SPOKE WITH [facility] AND PT'S DAUGHTER VIA THE PHONE TODAY. NO VISITORS TODAY. PT HAS MODERATE APPETITE FOR BREAKFAST AND LUNCH. PT CONTINUES TO BE INCONTINENT. PT TELE RUNNING SINUS TACHYCARDIA, 105 TODAY. PT UP IN CHAIR FOR LUNCH. PT IS IN BED, CALL LIGHT IN REACH, WITH ALARM ON.
--- NOTE | 2020-11-24 04:28 | NUR ---
DATA CAPTURE CLERK SUMMARY A/O TO SELF, APPEARED TO SLEEP T/O SHIFT. Q2 REPOSITIONING. CURRENTLY ON RA. DENIES PAIN OR SOB. VSS. NO ACUTE CHANGES AT THIS TIME. BED IN LOWEST POSITION, ALARM ON, CALL LIGHT WITHIN REACH. WILL CONTINUE TO MONITOR AND REPORT TO ONCOMING RN.
--- NOTE | 2020-11-24 12:06 | NUR ---
DISCHARGE NOTE PT IV REMOVED FROM LEFT AC BY THIS RN. PT IS AO UPON DC. REPORT GIVEN TO JAVIER SÁNCHEZ AT [facility] COVID UNIT. PT DRESSED IN HOME CLOTHING BY RN PAIN MANAGEMENT. PT CPAP AND OTHER BELONGINGS PRESENT WITH PT UPON DC. THIS RN EXPLAINED DC TO [facility] TO PT WHO VERBALIZED UNDERSTANDING. ENHANCED COVID ISOLATION MAINTAINED THROUGHOUT SHIFT. THIS RN GAVE PAPERWORK TO TRANSPORTATION TO BE GIVEN TO RN AT [facility]. THIS RN ASSISTED PT INTO WHEELCHAIR AND MASKED PLACED ON PT. PT HAS LEFT THE UNIT AT APPROXIMATELY 1130.
== END 2020-11-24 10:45 | DRG 308 ==
LOC: ER 16:40 → MEDS 16:41
PROVIDERS: Emergency Medicine; Internal Medicine; Physician Assistant; ADMIT Family Medicine
PROC: 5A09357 Assistance with Respiratory Ventilation, Less than 24 Consecutive Hours, Continuous Positive Airway Pressure (ICD-10-PCS; principal; 2020-11-17)
DX: I48.20 Chronic atrial fibrillation, unspecified (principal); G92 Toxic encephalopathy; U07.1 COVID-19; Z68.41 Body mass index [BMI] 40.0-44.9, adult; Z79.01 Long term (current) use of anticoagulants; Z86.73 Personal history of transient ischemic attack (TIA), and cerebral infarction without residual deficits; K21.9 Gastro-esophageal reflux disease without esophagitis; E78.5 Hyperlipidemia, unspecified; G47.33 Obstructive sleep apnea (adult) (pediatric); Z87.891 Personal history of nicotine dependence; Z91.030 Bee allergy status; Z96.612 Presence of left artificial shoulder joint; M48.061 Spinal stenosis, lumbar region without neurogenic claudication; I67.9 Cerebrovascular disease, unspecified; K76.0 Fatty (change of) liver, not elsewhere classified; F03.90 Unspecified dementia, unspecified severity, without behavioral disturbance, psychotic disturbance, mood disturbance, and anxiety; E66.9 Obesity, unspecified; I10 Essential (primary) hypertension; W19.XXXA Unspecified fall, initial encounter; Y92.9 Unspecified place or not applicable
CPT/HCPCS: 0241U; 36415; 70450; 72100; 72192; 73502; 74018; 76705; 80048; 80053; 81001; 82140; 82803; 83690; 84443; 84484; 85014; 85018; 85025; 85027; 87086; 92507; 92523; 93005; 93010; 93306; 96374; 96375; 97110; 97110-CO; 97116; 97162; 97165; 97168; 97530; 97530-CO; 97535; 97535-CO; 99285-25; A9270; G0378; J2405; J3010